=== PATIENT | male | born 1980 | race African-American/Black ===

== ENCOUNTER 2016-11-09 09:01 | Emergency (ER) | payer OTHER ==
[~2016-11-09] VITALS: Ht 167.6 cm; Wt 63.5 kg
[2016-11-09 10:33] VITALS: BP 133/85
== END 2016-11-09 10:47 | disposition home or self-care (01) | DRG 605 ==
LOC: ED 09:01
PROC: 0HQGXZZ Repair Left Hand Skin, External Approach (ICD-10-PCS; principal; 2016-11-09)
DX: S61.215A Laceration without foreign body of left ring finger without damage to nail, initial encounter (principal); W27.8XXA Contact with other nonpowered hand tool, initial encounter; Y93.H2 Activity, gardening and landscaping; Y92.89 Other specified places as the place of occurrence of the external cause